=== PATIENT | female | born 1945 | race Caucasian/White ===

== ENCOUNTER 2018-10-10 06:16 | Outpatient (CLI) | payer MEDICARE ==
[2018-10-10 13:43] LABS: #Lymphocytes 1.6 thou/uL (1.20-3.40); #Monocytes 0.4 thou/uL (0.11-0.59); #Neutrophils 6.5 thou/uL (1.40-6.50); %Basophils 0.5 % (0.0-1.0); %Eosinophils 0.2 % (0.0-10.0); %Lymphocytes 18.9 % (21.0-51.0); %Monocytes 4.4 % (0.0-10.0); %Neutrophils 76.1 % (42.0-75.0); Hemoglobin 10.9 g/dL (12.0-16.0); Mean Corpuscular HGB CONC 32.6 g/dL (32.0-36.0); Mean Corpuscular Hemoglobin 29.5 pg (27.0-31.0); Mean Corpuscular Volume 90.4 fL (78.0-98.0); Mean Platelet Volume 9.2 fL (7.4-10.4); Platelet Count 325 thou/uL (130-400); RBC Distribution Width 12.2 % (11.5-14.5); Red Blood Cell (RBC) Count 3.69 mill/uL (4.20-5.40); White Blood Cell (WBC) Count 8.5 thou/uL (4.8-10.8)
[2018-10-10 13:51] LABS: Prothrombin Time 12.9 SEC (12.0-14.7)
--- NOTE | 2018-10-10 13:59 | RAD ---
CHEST PA AND LATERAL: History: 73-year-old female for pre-operative evaluation. FINDINGS: Minimal bilateral hyperinflation. Mild apical pleural thickening. Nipple shadows overlie the right an d left chest on the PA radiograph. No confluent pneumonia, overt edema, or pleural effusion. IMPRESSION: No acute intrathoracic disease. POS: C
[2018-10-10 14:14] LABS: Anion Gap 11 mmol/L (10-20); BUN (Urea Nitrogen) 23 mg/dL (9.8-20.1); Calc. Creatinine Clearance 0 mL/min (70-130); Calcium 9.6 mg/dL (7.8-10.44); Carbon Dioxide 27 mmol/L (23-31); Chloride 106 mmol/L (98-107); Estimated GFR-MDRD 58; Glucose 120 mg/dL (83-110); Potassium 3.9 mmol/L (3.5-5.1); Sodium 140 mmol/L (136-145)
== END 2018-10-10 06:17 | disposition home or self-care (01) ==
LOC: LABBT 06:16
PROVIDERS: ATTEND Orthopaedic Surgery
DX: Z01.818 Encounter for other preprocedural examination (principal); M16.11 Unilateral primary osteoarthritis, right hip
CPT/HCPCS: 71046; 80048; 85025; 85610; 87081; 93005; 93010

== ENCOUNTER 2018-10-10 14:30 | Inpatient (IN) | payer MEDICARE ==
[2018-10-10 13:32] VITALS: BMI 17.2
[2018-10-22] MEDS ORDERED: CEFAZOLIN 2 GM/50 ML BAG ONE (08:20)
[2018-10-22] MEDS ORDERED: Sodium Chloride 0.9% 100 ML ONE (08:20)
[2018-10-22] MEDS ORDERED: Tranexamic Acid 1,000 MG/10 ML VIAL ONE (08:20)
[2018-10-22] MEDS ORDERED: Promethazine HCl 25 MG/ML VIAL IM PRN ×3 (08:38→12:05)
[2018-10-22] MEDS ORDERED: Ondansetron PF 4 MG/2 ML Vial IVP PRN ×2 (08:38→10:15)
[2018-10-22] MEDS ORDERED: HYDROcodone/Acetaminophen 10/325 mg Tablet PO PRN ×2 (08:38)
[2018-10-22] MEDS ORDERED: Zolpidem Tartrate 5 MG TAB PO PRN ×2 (08:38→10:15)
[2018-10-22] MEDS ORDERED: diphenhydrAMINE 25 MG CAP PO PRN ×2 (08:38→10:15)
[2018-10-22] MEDS ORDERED: Acetaminophen 325 MG TAB PO PRN (08:38)
[2018-10-22] MEDS ORDERED: Levofloxacin 500 mg/D5W 100 ml Premix Bag ONE (09:08)
[2018-10-22] MEDS ORDERED: Midazolam HCl 2 mg/2 ml Vial ONE (09:18)
[2018-10-22] MEDS ORDERED: Fentanyl 100 MCG/2 ML VIAL ONE ×3 (09:18→12:05)
[2018-10-22] MEDS ORDERED: Bupivacaine 0.25% 10 ML VIAL EPIDURAL PRN (10:15)
[2018-10-22] MEDS ORDERED: Promethazine HCl 25 MG SUPP PR PRN (10:15)
[2018-10-22] MEDS ORDERED: traMADol HCl 50 MG TAB PO PRN (10:15)
[2018-10-22] MEDS ORDERED: Naloxone HCl 0.4 mg/ml Vial IVP PRN (10:15)
[2018-10-22] MEDS ORDERED: Hydrocerin (Eucerin) Cream 120 gm Jar TOP PRN (10:15)
[2018-10-22] MEDS ORDERED: HYDROcodone/Acetaminophen 5/325 mg Tablet PO PRN (10:15)
[2018-10-22] MEDS ORDERED: diphenhydrAMINE 50 MG/ML VIAL IM PRN (10:15)
[2018-10-22] MEDS ORDERED: Naloxone HCl 0.4 mg/ml Vial IV PRN (10:15)
[2018-10-22] MEDS ORDERED: diphenhydrAMINE 50 MG/ML VIAL IVP PRN (10:15)
[2018-10-22] MEDS ORDERED: Ropivacaine 0.2% HCl/PF 20 ML ONE (10:20)
[2018-10-22] MEDS ORDERED: Ondansetron HCl/PF 4 MG/2 ML Vial IVP PRN (12:05)
[2018-10-22] MEDS ORDERED: Promethazine HCl 25 MG/ML VIAL SLOW IVP PRN (12:05)
[2018-10-22] MEDS ORDERED: Fentanyl/Bupivacaine 100 ML EPIDURAL ONE (12:24)
[2018-10-22] MEDS ORDERED: Ondansetron PF 4 MG/2 ML Vial ONE (12:55)
[2018-10-22] MEDS ORDERED: Dexamethasone 20 MG/5 ML VIAL ONE (12:55)
[2018-10-22] MEDS ORDERED: ePHEDrine/0.9% NaCl/PF SYRINGE 50 mg/10 ml ONE (12:55)
[2018-10-22] MEDS ORDERED: PHENYLEPHRINE-NS 100 MCG/ML 10 ML SYRINGE ONE (12:55)
[2018-10-22] MEDS ORDERED: PROPOFOL 200 MG/20 ML VIAL ONE (12:55)
--- NOTE | 2018-10-22 13:19 | OP ---
DATE OF PROCEDURE: 10/22/2018 PREOPERATIVE DIAGNOSIS: Degenerative joint disease, right hip. POSTOPERATIVE DIAGNOSIS: Degenerative joint disease, right hip. IMPLANTS USED: [place] Accolade 3.5 stem with a -2.5, 36 ceramic head and a 50 mm PSL cup with X3 liner. PULMONARY FUNCTION TECHNOLOGIST: Jose Alfredo Kan PA-C. BLOOD LOSS: 200. SPECIMEN: None. DRAINS: None. COMPLICATION: None. PROCEDURE IN DETAIL: After informed consent was obtained in the preoperative holding area, the patient was taken to the operative suite where general anesthesia was induced. The patient was then positioned in the lateral decubitus position. The hip was then prepped and draped in usual sterile fashion. The patient received preoperative antibiotics. Prior to incision, time-out was called and all members of the surgical team agreed upon site, surgeon, and patient. After this, a longitudinal incision was made directly over the trochanter, noted by palpation extending 2 fingerbreadths above and below the trochanter. The deeper subcutaneous layer was undermined with Bovie electrocautery. The iliotibial band was encountered and incised sharply and the plane below this was developed bluntly. A Charnley retractor was placed to hold this opened. The lateral aspect of the trochanter and the abductor muscles were encountered and then reflected anteriorly off the trochanter using Bovie electrocautery. Once this was completed, the anterior capsule was then encountered and identified and copious capsulotomy was carried out, exposing the femoral neck and head. Dislocation maneuver was then performed and an in situ provisional neck cut was then made using the oscillating saw. Attention was then turned to acetabular preparation and sequential reaming was carried out up to the appropriate diameter. A trial was then malleted into place with good firm resistance and no pullout. The permanent acetabular shell was then malleted squarely into place, as was the appropriate liner. Once completed, the wound was copiously irrigated and attention was then turned to femoral preparation. Flexion and external rotation were performed of the exposed thigh and femoral elevators were then placed at the proximal aspect of the wound. Canal finder was used to establish the length of the canal and sequential reaming was carried out, followed by broaching. Once the appropriate stability was established with the trial broaches with flexion, extension and rotational stability, we did trial with neutral and 2 mm offset incremental necks. Once the appropriate size was decided upon, with good stability noted with flexion, extension, internal and external rotation and shuck being negative, we removed the femoral trial broach and malletted into place the permanent prosthesis with good firm fit, which was also stable to rotation. Again, the hip felt very stable to flexion, extension, internal and external rotation. Leg lengths appeared near anatomic clinically and we were quite happy with prosthesis placement. Copious irrigation was then carried out through the entirety of the wound. Primary closure of the abductors was accomplished with interrupted #2 Vicryl [id number] stitches and the IT band was then closed with interrupted #2 Vicryl, oversewn with a #2 running barbed Quill stitch. Subcutaneous fascia was closed with running barbed Quill stitch and a subcuticular Monocryl barbed Quill stitch was used for skin closure and augmented with skin cement. A sterile dressing was applied. The procedure was terminated without any complication. All counts were correct. The patient was awakened in the operative suite and taken to the recovery room in stable condition. Job ID: [id number]
[2018-10-22] MEDS: Aspirin 81 mg Enteric Coated Tablet PO SCH ×2 (13:53→19:42)
--- NOTE | 2018-10-22 13:53 | RAD ---
2 VIEWS RIGHT HIP: Date: 10/22/18 HISTORY: Total hip arthroplasty. FINDINGS: There is a right total hip arthroplasty with no evidence for hardware failure. There is adjacent post operative gas suggesting recent procedure. IMPRESSION: Status post right hip arthroplasty. No adverse features. POS: JOSE DAVID
[2018-10-22] MEDS: Ketorolac Tromethamine 30 MG/ML VIAL IVP SCH ×3 (13:54→23:19)
[2018-10-22] MEDS ORDERED: Ketorolac Tromethamine 30 MG/ML VIAL IVP SCH (14:00)
[2018-10-22] MEDS ORDERED: Loperamide HCl 2 MG CAP PO PRN (15:05)
[2018-10-22] MEDS ORDERED: Cepastat Lozenges 1 LOZ PO PRN (15:05)
[2018-10-22] MEDS ORDERED: hydrALAZINE 20 MG/ML VIAL SLOW IVP PRN (15:05)
[2018-10-22] MEDS ORDERED: Artificial Tear Sol 15 ML BOT EA EYE PRN (15:05)
[2018-10-22] MEDS ORDERED: Diabetic Tussin 200 MG/10 ML UDCUP PO PRN (15:05)
[2018-10-22] MEDS ORDERED: Eucerin (Mineral Oil/Petrolatum,White) 30 gm Jar TOP PRN (15:05)
[2018-10-22] MEDS: Sodium Chloride 0.9% 1,000 ML IV SCH ×2 (15:19→15:28)
--- NOTE | 2018-10-22 15:34 | PDOC.PN ---
- Subjective Encounter Start Date: 10/22/18 Encounter Start Time: 15:00 -: old records requested/rev Patient seen and examined. No new complaints. pt is admitted for right hip replacement pain controlled BP low but pt is asymptomatic - Objective Resuscitation Status - Order Detail: 10/22/18 14:57 Resuscitation Status Routine Resuscitation Status: FULL: Full Resuscitation MAR Reviewed: Yes Vital Signs & Weight: Vital Signs (12 hours) Temp Pulse Resp BP Pulse Ox 10/22/18 14:20 97.8 F 60 18 95/52 L 100 Weight Weight 100 lb Additional Labs: old medical record reviewed Radiology Reviewed by me: Yes (hip xray reviewed) Phys Exam - Physical Examination Constitutional: NAD HEENT: PERRLA, moist MMs, sclera anicteric, oral pharynx no lesions Neck: no JVD, supple Respiratory: no wheezing, no rales, no rhonchi Cardiovascular: RRR, no significant murmur, no rub Gastrointestinal: soft, non-tender, no distention, positive bowel sounds Musculoskeletal: no edema, pulses present right hip surgical site dressing, almodovar+, epidural in place Neurological: non-focal, normal sensation, moves all 4 limbs Lymphatic: no nodes Psychiatric: normal affect, A&O x 3 Skin: no rash, normal turgor Dx/Plan (1) Osteoarthritis Code(s): M19.90 - UNSPECIFIED OSTEOARTHRITIS, UNSPECIFIED SITE Status: Chronic (2) Status post total hip replacement, right Code(s): Z96.641 - PRESENCE OF RIGHT ARTIFICIAL HIP JOINT Status: Acute - Plan cont current plan of care, plan discussed w/ family, PT/OT * continue aspirin for DVT prophylaxis * epidural as per anesthesia * PT/OT as per [facility] protocol treatment * home medication reconciled * medication reviewed as below * symptomatic treatment * code status addressed and she is full code * pain controlled * medically stable * discussed with family bedside * will follow.. Review of Systems - Review of Systems ENT: negative: Ear Pain, Ear Discharge, Nose Pain, Nose Discharge, Nose Congestion, Mouth Pain, Mouth Swelling, Throat Pain, Throat Swelling, Other Respiratory: negative: Cough, Dry, Shortness of Breath, Hemoptysis, SOB with Excertion, Pleuritic Pain, Sputum, Wheezing Cardiovascular: negative: chest pain, palpitations, orthopnea, paroxysmal nocturnal dyspnea, edema, light headedness, other Gastrointestinal: negative: Nausea, Vomiting, Abdominal Pain, Diarrhea, Constipation, Melena, Hematochezia, Other Genitourinary: negative: Dysuria, Frequency, Incontinence, Hematuria, Retention , Other Musculoskeletal: negative: Neck Pain, Shoulder Pain, Arm Pain, Back Pain, Hand Pain, Leg Pain, Foot Pain, Other Skin: negative: Rash, Lesions, Harinder, Bruising, Other - Medications/Allergies Allergies/Adverse Reactions: Allergies Allergy/AdvReac Type Severity Reaction Status Date / Time Penicillins Allergy Verified 10/22/18 14:14 Medications: Current Medications Acetaminophen (Tylenol) 650 mg PO Q4H PRN PRN Reason: Headache/Fever or Pain Hydrocodone Bitart/Acetaminophen ([place] 5/325) 1 tab PO Q4H PRN PRN Reason: Mild Pain 0-3 Hydrocodone Bitart/Acetaminophen ([place] 5/325) 2 tab PO Q4H PRN PRN Reason: For Moderate Pain 4-6 Artificial Tears (Tears Renewed 15ml Bottle) 2 drop EA EYE PRN PRN PRN Reason: Dry Eyes Aspirin (Ecotrin) 81 mg PO BID [facility] Last Admin: 10/22/18 13:53 Dose: Not Given Bupivacaine HCl (Marcaine) 5 ml EPIDURAL ONE PRN PRN Reason: UNCONTROLLED PAIN Stop: 10/22/18 23:00 Diphenhydramine HCl (Benadryl) 25 mg PO Q3H PRN PRN Reason: Itching Diphenhydramine HCl (Benadryl) 25 mg IM Q3H PRN PRN Reason: Itching Diphenhydramine HCl (Benadryl) 25 mg IVP Q3H PRN PRN Reason: Itching Emollient Cream (Hydrocerin Cream) 0 gm TOP PRN PRN PRN Reason: Itching Famotidine (Pepcid) 20 mg PO BID [facility] Ferrous Gluconate (Fergon) 324 [facility] BID[facility] Guaifenesin (Robitussin Sf) 200 mg PO Q4H PRN PRN Reason: Cough Hydralazine HCl (Apresoline) 10 mg SLOW IVP Q4H PRN PRN Reason: SBP > 180 and HR < 70 Levofloxacin 500 mg/ Device 100 mls @ 100 mls/hr IVPB 0900 [facility] Stop: 10/23/18 09:59 Sodium Chloride (Normal Saline 0.9%) 1,000 mls @ 100 mls/hr IV .Q10H [facility] Last Admin: 10/22/18 15:28 Dose: Not Given Vancomycin HCl 1 gm/ Device 200 mls @ 200 mls/hr IVPB 1999 [facility] Stop: 10/22/18 20:59 Fentanyl Citrate (Fentanyl/Bupivacaine) 100 mls @ 6 mls/hr EPIDURAL INF [facility] Iron/Minerals/Multivitamins (Theragran M) 1 tab PO DAILY [facility] Ketorolac Tromethamine (Toradol) 15 mg IVP Q6HR [facility] Stop: 10/24/18 06:01 Last Admin: 10/22/18 13:54 Dose: Not Given Loperamide HCl (Imodium) 2 mg PO PRN PRN PRN Reason: Diarrhea/Loose Stools Mineral Oil/White Petrolatum (Eucerin Cream) 0 gm TOP BIDPRN PRN PRN Reason: Dry Skin Miscellaneous Information (Communication Order-Pharmacy) 1 each FS ASDIR [facility] Naloxone HCl (Narcan) 0.2 mg IV Q5MIN PRN PRN Reason: RR <=8 OR OBTUNDED/UNAROUSABLE Naloxone HCl (Narcan) 0.1 mg IVP Q15MIN PRN PRN Reason: URINARY RETENTION Ondansetron HCl (Zofran) 4 mg IVP Q6H PRN PRN Reason: Nausea/Vomiting Promethazine HCl (Phenergan) 12.5 mg IM Q4H PRN PRN Reason: Nausea Promethazine HCl (Phenergan Suppository) 25 mg [place] Q4H PRN PRN Reason: Nausea/Vomiting Senna/Docusate Sodium (Senokot S) 2 tab PO BID [facility] Sodium Chloride (Flush - Normal Saline) 10 ml IVF PRN PRN PRN Reason: Saline Flush Throat Lozenges (Cepastat Lozenges) 1 chaz PO Q2H PRN PRN Reason: Sore Throat Tramadol HCl (Ultram) 50 mg PO Q6H PRN PRN Reason: Mild Pain 1-3 Tramadol HCl (Ultram) 100 mg PO Q6H PRN PRN Reason: Moderate Pain 4-6 Zolpidem Tartrate (Ambien) 5 mg PO HSPRN PRN PRN Reason: Insomnia
[2018-10-22] MEDS: Famotidine 20 MG TAB PO SCH (19:42)
[2018-10-22] MEDS ORDERED: Vancomycin HCl 1 GM in Premix Bag 1 BAG IVPB SCH (20:00)
[2018-10-23] MEDS: Sodium Chloride 0.9% 1,000 ML IV SCH ×2 (04:53→14:53)
[2018-10-23] MEDS: Ketorolac Tromethamine 30 MG/ML VIAL IVP SCH ×3 (05:39→17:30)
[2018-10-23] MEDS: Fentanyl/Bupivacaine 100 ML EPIDURAL SCH ×2 (05:43→21:13)
[2018-10-23 07:37] LABS: Hemoglobin 8.5 g/dL (12.0-16.0); Mean Corpuscular HGB CONC 32.6 g/dL (32.0-36.0); Mean Corpuscular Hemoglobin 29.7 pg (27.0-31.0); Mean Platelet Volume 9.4 fL (7.4-10.4); Platelet Count 252 thou/uL (130-400); RBC Distribution Width 12.2 % (11.5-14.5); Red Blood Cell (RBC) Count 2.87 mill/uL (4.20-5.40); White Blood Cell (WBC) Count 11.9 thou/uL (4.8-10.8)
[2018-10-23] MEDS: Multivitamin W/ Minerals 1 TAB PO SCH (07:52)
[2018-10-23] MEDS: Famotidine 20 MG TAB PO SCH ×2 (07:52→20:24)
[2018-10-23] MEDS: Aspirin 81 mg Enteric Coated Tablet PO SCH ×2 (07:52→20:24)
[2018-10-23] MEDS: Ferrous Gluconate 324 MG TAB PO SCH ×2 (07:52→17:40)
[2018-10-23] MEDS: Senokot S 8.6-50 MG TAB PO SCH ×2 (07:52→20:24)
[2018-10-23] MEDS: traMADol HCl 50 MG TAB PO PRN (10:12)
--- NOTE | 2018-10-23 10:49 | PDOC.PN ---
- Subjective Encounter Start Date: 10/23/18 Encounter Start Time: 08:10 Patient seen and examined. No new complaints. No overnight events - Objective Resuscitation Status - Order Detail: 10/22/18 14:57 Resuscitation Status Routine Resuscitation Status: FULL: Full Resuscitation MAR Reviewed: Yes Vital Signs & Weight: Vital Signs (12 hours) Temp Pulse Resp BP BP Pulse Ox 10/23/18 10:15 106/48 L 10/23/18 08:20 97.8 F 80 20 93/47 L 100 10/23/18 08:00 100 10/23/18 04:30 98 F 78 20 98/51 L 99 10/23/18 00:11 97.9 F 82 19 119/54 L 100 Weight Weight 100 lb I&O: 10/22/18 10/23/18 10/24/18 06:59 06:59 06:59 Intake Total 2120 Output Total 900 Balance 1220 Result Diagrams: 10/23/18 07:20 Phys Exam - Physical Examination Constitutional: NAD HEENT: PERRLA, moist MMs, sclera anicteric Neck: no JVD, supple Respiratory: no wheezing, no rales, no rhonchi Cardiovascular: RRR, no significant murmur, no rub Gastrointestinal: soft, non-tender, no distention, positive bowel sounds Musculoskeletal: no edema, pulses present almodovar+, epidural in place,, surgical site with dressing Neurological: non-focal, normal sensation, moves all 4 limbs Psychiatric: normal affect, A&O x 3 Skin: no rash, normal turgor Dx/Plan (1) Status post total hip replacement, right Code(s): Z96.641 - PRESENCE OF RIGHT ARTIFICIAL HIP JOINT Status: Acute (2) Anemia, normocytic normochromic Code(s): D64.9 - ANEMIA, UNSPECIFIED Status: Chronic (3) Osteoarthritis Code(s): M19.90 - UNSPECIFIED OSTEOARTHRITIS, UNSPECIFIED SITE Status: Chronic - Plan cont current plan of care, PT/OT * BP low but pt is asymptomatic * continue aspirin for DVT prophylaxis * epidural as per anesthesia * PT/OT as per [facility] protocol treatment * medication reviewed as below * symptomatic treatment * pain controlled * medically stable. Review of Systems - Review of Systems Eyes: negative: Pain, Vision Change, Conjunctivae Inflammation, Eyelid Inflammation, Redness, Other ENT: negative: Ear Pain, Ear Discharge, Nose Pain, Nose Discharge, Nose Congestion, Mouth Pain, Mouth Swelling, Throat Pain, Throat Swelling, Other Respiratory: negative: Cough, Dry, Shortness of Breath, Hemoptysis, SOB with Excertion, Pleuritic Pain, Sputum, Wheezing Cardiovascular: negative: chest pain, palpitations, orthopnea, paroxysmal nocturnal dyspnea, edema, light headedness, other Gastrointestinal: negative: Nausea, Vomiting, Abdominal Pain, Diarrhea, Constipation, Melena, Hematochezia, Other Genitourinary: negative: Dysuria, Frequency, Incontinence, Hematuria, Retention , Other Musculoskeletal: negative: Neck Pain, Shoulder Pain, Arm Pain, Back Pain, Hand Pain, Leg Pain, Foot Pain, Other Skin: negative: Rash, Lesions, Harinder, Bruising, Other - Medications/Allergies Allergies/Adverse Reactions: Allergies Allergy/AdvReac Type Severity Reaction Status Date / Time Penicillins Allergy Verified 10/22/18 14:14 Medications: Current Medications Acetaminophen (Tylenol) 650 mg PO Q4H PRN PRN Reason: Headache/Fever or Pain Hydrocodone Bitart/Acetaminophen ([place] 5/325) 1 tab PO Q4H PRN PRN Reason: Mild Pain 0-3 Hydrocodone Bitart/Acetaminophen ([place] 5/325) 2 tab PO Q4H PRN PRN Reason: For Moderate Pain 4-6 Artificial Tears (Tears Renewed 15ml Bottle) 2 drop EA EYE PRN PRN PRN Reason: Dry Eyes Aspirin (Ecotrin) 81 mg PO BID [facility] Last Admin: 10/23/18 07:52 Dose: 81 mg Diphenhydramine HCl (Benadryl) 25 mg PO Q3H PRN PRN Reason: Itching Diphenhydramine HCl (Benadryl) 25 mg IM Q3H PRN PRN Reason: Itching Diphenhydramine HCl (Benadryl) 25 mg IVP Q3H PRN PRN Reason: Itching Emollient Cream (Hydrocerin Cream) 0 gm TOP PRN PRN PRN Reason: Itching Famotidine (Pepcid) 20 mg PO BID [facility] Last Admin: 10/23/18 07:52 Dose: 20 mg Ferrous Gluconate (Fergon) 324 mg PO BID[facility] Last Admin: 10/23/18 07:52 Dose: 324 mg Guaifenesin (Robitussin Sf) 200 mg PO Q4H PRN PRN Reason: Cough Hydralazine HCl (Apresoline) 10 mg SLOW IVP Q4H PRN PRN Reason: SBP > 180 and HR < 70 Sodium Chloride (Normal Saline 0.9%) 1,000 mls @ 100 mls/hr IV .Q10H [facility] Last Admin: 10/23/18 04:53 Dose: Not Given Fentanyl Citrate (Fentanyl/Bupivacaine) 100 mls @ 6 mls/hr EPIDURAL INF [facility] Last Admin: 10/23/18 05:43 Dose: 100 mls Iron/Minerals/Multivitamins (Theragran M) 1 tab PO DAILY [facility] Last Admin: 10/23/18 07:52 Dose: 1 tab Ketorolac Tromethamine (Toradol) 15 mg IVP Q6HR [facility] Stop: 10/24/18 06:01 Last Admin: 10/23/18 05:39 Dose: 15 mg Loperamide HCl (Imodium) 2 mg PO PRN PRN PRN Reason: Diarrhea/Loose Stools Mineral Oil/White Petrolatum (Eucerin Cream) 0 gm TOP BIDPRN PRN PRN Reason: Dry Skin Miscellaneous Information (Communication Order-Pharmacy) 1 each FS ASDIR [facility] Naloxone HCl (Narcan) 0.2 mg IV Q5MIN PRN PRN Reason: RR <=8 OR OBTUNDED/UNAROUSABLE Naloxone HCl (Narcan) 0.1 mg IVP Q15MIN PRN PRN Reason: URINARY RETENTION Ondansetron HCl (Zofran) 4 mg IVP Q6H PRN PRN Reason: Nausea/Vomiting Promethazine HCl (Phenergan) 12.5 mg IM Q4H PRN PRN Reason: Nausea Promethazine HCl (Phenergan Suppository) 25 mg [place] Q4H PRN PRN Reason: Nausea/Vomiting Senna/Docusate Sodium (Senokot S) 2 tab PO BID [facility] Last Admin: 10/23/18 07:52 Dose: 2 tab Sodium Chloride (Flush - Normal Saline) 10 ml IVF PRN PRN PRN Reason: Saline Flush Throat Lozenges (Cepastat Lozenges) 1 chaz PO Q2H PRN PRN Reason: Sore Throat Tramadol HCl (Ultram) 50 mg PO Q6H PRN PRN Reason: Mild Pain 1-3 Last Admin: 10/23/18 10:12 Dose: 50 mg Tramadol HCl (Ultram) 100 mg PO Q6H PRN PRN Reason: Moderate Pain 4-6 Zolpidem Tartrate (Ambien) 5 mg PO HSPRN PRN PRN Reason: Insomnia
[2018-10-24] MEDS: Sodium Chloride 0.9% 1,000 ML IV SCH ×3 (00:25→19:19)
[2018-10-24] MEDS: Ketorolac Tromethamine 30 MG/ML VIAL IVP SCH ×2 (00:25→06:22)
[2018-10-24 06:41] LABS: Hemoglobin 8.3 g/dL (12.0-16.0); Mean Corpuscular HGB CONC 31.7 g/dL (32.0-36.0); Mean Corpuscular Hemoglobin 29.3 pg (27.0-31.0); Mean Corpuscular Volume 92.6 fL (78.0-98.0); Mean Platelet Volume 10.2 fL (7.4-10.4); Platelet Count 253 thou/uL (130-400); RBC Distribution Width 12.6 % (11.5-14.5); Red Blood Cell (RBC) Count 2.82 mill/uL (4.20-5.40); White Blood Cell (WBC) Count 11.3 thou/uL (4.8-10.8)
[2018-10-24] MEDS: Multivitamin W/ Minerals 1 TAB PO SCH (08:21)
[2018-10-24] MEDS: Ferrous Gluconate 324 MG TAB PO SCH ×2 (08:21→16:50)
[2018-10-24] MEDS: Senokot S 8.6-50 MG TAB PO SCH ×2 (08:21→20:31)
[2018-10-24] MEDS: Famotidine 20 MG TAB PO SCH ×2 (08:22→20:31)
[2018-10-24] MEDS: Aspirin 81 mg Enteric Coated Tablet PO SCH ×2 (08:25→20:30)
--- NOTE | 2018-10-24 09:43 | PDOC.PN ---
- Subjective Encounter Start Date: 10/24/18 Encounter Start Time: 08:00 Patient seen and examined. No new complaints. No overnight events - Objective Resuscitation Status - Order Detail: 10/22/18 14:57 Resuscitation Status Routine Resuscitation Status: FULL: Full Resuscitation MAR Reviewed: Yes Vital Signs & Weight: Vital Signs (12 hours) Temp Pulse Resp BP Pulse Ox 10/24/18 07:15 98.4 F 79 18 94/52 L 96 10/24/18 04:00 98.1 F 79 15 96/61 98 10/24/18 01:03 98.6 F 83 17 112/56 L 99 Weight Admit Weight 100 lb Weight 100 lb I&O: 10/23/18 10/24/18 10/25/18 06:59 06:59 06:59 Intake Total 2120 750 Output Total 900 1250 Balance 1220 -500 Result Diagrams: 10/24/18 04:26 Phys Exam - Physical Examination Constitutional: NAD HEENT: PERRLA, moist MMs, sclera anicteric Neck: no JVD, supple Respiratory: no wheezing, no rales, no rhonchi Cardiovascular: RRR, no significant murmur, no rub Gastrointestinal: soft, non-tender, no distention, positive bowel sounds Musculoskeletal: no edema, pulses present Neurological: non-focal, normal sensation Lymphatic: no nodes Psychiatric: normal affect, A&O x 3 Skin: no rash, normal turgor Dx/Plan (1) Status post total hip replacement, right Code(s): Z96.641 - PRESENCE OF RIGHT ARTIFICIAL HIP JOINT Status: Acute (2) Anemia, normocytic normochromic Code(s): D64.9 - ANEMIA, UNSPECIFIED Status: Chronic (3) Osteoarthritis Code(s): M19.90 - UNSPECIFIED OSTEOARTHRITIS, UNSPECIFIED SITE Status: Chronic - Plan cont current plan of care, PT/OT, rn social services * medication reviewed as below * symptomatic treatment * may need placement * medically stable. Review of Systems - Review of Systems ENT: negative: Ear Pain, Ear Discharge, Nose Pain, Nose Discharge, Nose Congestion, Mouth Pain, Mouth Swelling, Throat Pain, Throat Swelling, Other Respiratory: negative: Cough, Dry, Shortness of Breath, Hemoptysis, SOB with Excertion, Pleuritic Pain, Sputum, Wheezing Cardiovascular: negative: chest pain, palpitations, orthopnea, paroxysmal nocturnal dyspnea, edema, light headedness, other Gastrointestinal: negative: Nausea, Vomiting, Abdominal Pain, Diarrhea, Constipation, Melena, Hematochezia, Other Genitourinary: negative: Dysuria, Frequency, Incontinence, Hematuria, Retention , Other Musculoskeletal: negative: Neck Pain, Shoulder Pain, Arm Pain, Back Pain, Hand Pain, Leg Pain, Foot Pain, Other - Medications/Allergies Allergies/Adverse Reactions: Allergies Allergy/AdvReac Type Severity Reaction Status Date / Time Penicillins Allergy Verified 10/22/18 14:14 Medications: Current Medications Acetaminophen (Tylenol) 650 mg PO Q4H PRN PRN Reason: Headache/Fever or Pain Hydrocodone Bitart/Acetaminophen ([place] 5/325) 1 tab PO Q4H PRN PRN Reason: Mild Pain 0-3 Hydrocodone Bitart/Acetaminophen ([place] 5/325) 2 tab PO Q4H PRN PRN Reason: For Moderate Pain 4-6 Artificial Tears (Tears Renewed 15ml Bottle) 2 drop EA EYE PRN PRN PRN Reason: Dry Eyes Aspirin (Ecotrin) 81 mg PO BID [facility] Last Admin: 10/24/18 08:25 Dose: 81 mg Diphenhydramine HCl (Benadryl) 25 mg PO Q3H PRN PRN Reason: Itching Diphenhydramine HCl (Benadryl) 25 mg IM Q3H PRN PRN Reason: Itching Diphenhydramine HCl (Benadryl) 25 mg IVP Q3H PRN PRN Reason: Itching Emollient Cream (Hydrocerin Cream) 0 gm TOP PRN PRN PRN Reason: Itching Famotidine (Pepcid) 20 mg PO BID [facility] Last Admin: 10/24/18 08:22 Dose: 20 mg Ferrous Gluconate (Fergon) 324 mg PO BID[facility] Last Admin: 10/24/18 08:21 Dose: 324 mg Guaifenesin (Robitussin Sf) 200 mg PO Q4H PRN PRN Reason: Cough Hydralazine HCl (Apresoline) 10 mg SLOW IVP Q4H PRN PRN Reason: SBP > 180 and HR < 70 Sodium Chloride (Normal Saline 0.9%) 1,000 mls @ 100 mls/hr IV .Q10H [facility] Last Admin: 10/24/18 00:25 Dose: Not Given Fentanyl Citrate (Fentanyl/Bupivacaine) 100 mls @ 6 mls/hr EPIDURAL INF [facility] Last Admin: 10/23/18 21:13 Dose: 100 mls Iron/Minerals/Multivitamins (Theragran M) 1 tab PO DAILY [facility] Last Admin: 10/24/18 08:21 Dose: 1 tab Loperamide HCl (Imodium) 2 mg PO PRN PRN PRN Reason: Diarrhea/Loose Stools Mineral Oil/White Petrolatum (Eucerin Cream) 0 gm TOP BIDPRN PRN PRN Reason: Dry Skin Miscellaneous Information (Communication Order-Pharmacy) 1 each FS ASDIR [facility] Naloxone HCl (Narcan) 0.2 mg IV Q5MIN PRN PRN Reason: RR <=8 OR OBTUNDED/UNAROUSABLE Naloxone HCl (Narcan) 0.1 mg IVP Q15MIN PRN PRN Reason: URINARY RETENTION Ondansetron HCl (Zofran) 4 mg IVP Q6H PRN PRN Reason: Nausea/Vomiting Last Admin: 10/23/18 17:30 Dose: 4 mg Promethazine HCl (Phenergan) 12.5 mg IM Q4H PRN PRN Reason: Nausea Promethazine HCl (Phenergan Suppository) 25 mg [place] Q4H PRN PRN Reason: Nausea/Vomiting Senna/Docusate Sodium (Senokot S) 2 tab PO BID [facility] Last Admin: 10/24/18 08:21 Dose: 2 tab Sodium Chloride (Flush - Normal Saline) 10 ml IVF PRN PRN PRN Reason: Saline Flush Throat Lozenges (Cepastat Lozenges) 1 chaz PO Q2H PRN PRN Reason: Sore Throat Tramadol HCl (Ultram) 50 mg PO Q6H PRN PRN Reason: Mild Pain 1-3 Last Admin: 10/23/18 10:12 Dose: 50 mg Tramadol HCl (Ultram) 100 mg PO Q6H PRN PRN Reason: Moderate Pain 4-6 Zolpidem Tartrate (Ambien) 5 mg PO HSPRN PRN PRN Reason: Insomnia
[2018-10-24] MEDS: traMADol HCl 50 MG TAB PO PRN (15:26)
[2018-10-24] MEDS: HYDROcodone/Acetaminophen 5/325 mg Tablet PO PRN (18:53)
[2018-10-25 06:31] LABS: Hemoglobin 8.7 g/dL (12.0-16.0); Mean Corpuscular HGB CONC 32.7 g/dL (32.0-36.0); Mean Corpuscular Hemoglobin 29.7 pg (27.0-31.0); Mean Corpuscular Volume 90.7 fL (78.0-98.0); Mean Platelet Volume 9.7 fL (7.4-10.4); Platelet Count 251 thou/uL (130-400); RBC Distribution Width 12.2 % (11.5-14.5); Red Blood Cell (RBC) Count 2.93 mill/uL (4.20-5.40); White Blood Cell (WBC) Count 11.2 thou/uL (4.8-10.8)
[2018-10-25] MEDS: Sodium Chloride 0.9% 1,000 ML IV SCH ×2 (06:38→08:30)
[2018-10-25] MEDS: Ferrous Gluconate 324 MG TAB PO SCH (08:28)
[2018-10-25] MEDS: Senokot S 8.6-50 MG TAB PO SCH (08:29)
[2018-10-25] MEDS: Aspirin 81 mg Enteric Coated Tablet PO SCH (08:29)
[2018-10-25] MEDS: HYDROcodone/Acetaminophen 5/325 mg Tablet PO PRN (08:29)
[2018-10-25] MEDS: Famotidine 20 MG TAB PO SCH (08:29)
[2018-10-25] MEDS: Multivitamin W/ Minerals 1 TAB PO SCH (08:29)
--- NOTE | 2018-10-25 10:44 | PRG ---
DATE OF SERVICE: 10/25/2018 PROGRESS NOTE/SIGN OUT NOTE/TRANSFER OF CARE NOTE OR DISCHARGE SUMMARY: PRIMARY CARE PHYSICIAN: Juanjose Gaitan MD DATE OF DISCHARGE: 10/25/2018. DISCHARGE DISPOSITION: Group Home Unit. PRIMARY DISCHARGE DIAGNOSIS: Status post total hip replacement on the right side. SECONDARY DISCHARGE DIAGNOSES: 1. Normocytic normochromic anemia. 2. Osteoarthritis. PRIMARY PROCEDURE/OPERATION: Right total hip replacement by Dr. Rothman. RADIOLOGICAL INVESTIGATION: Hip x-ray. SIGNIFICANT LABORATORY DATA: WBC 11.2, hemoglobin 8.7, platelet 251. DISCHARGE MEDICATIONS: 1. Aspirin 81 mg p.o. b.i.d. 2. [place] 5 one or two tablets q.4 hourly p.r.n. CONTRAINDICATION: None. CODE STATUS: Full code. INPATIENT COLLABORATING SUPERVISING PHYSICIAN: Dr. Rothman was primary while in the hospital. [facility] Team was consulted for medical comanagement. TEST RESULTS PENDING ON DISCHARGE: None. ALLERGIES: PENICILLIN. DISCHARGE PLAN: Posthospital, the patient will follow up with Dr. Juanjose Gaitan in 1 week. Posthospital, the patient will follow up with Dr. Barrera Rothman on 11/14/2018 at 03:00 p.m. HOSPITAL COURSE: A 73-year-old female who was admitted by Dr. Rothman for right total hip replacement. The patient has osteoarthritis, which is gradually getting worse, affecting her quality of life and that is why the patient was admitted for a hip replacement, which was done on 10/22/[address] Rothman without any complication. Postoperatively, the patient was at [facility] and [facility] Team was consulted for medical comanagement. The patient's medical problems remained stable. The patient had an epidural while in hospital. She had relatively low blood pressure, but the patient was asymptomatic and it was improved with IV fluid. The patient is requiring [facility] home placement and that is why with help of director of casework, we arranged medicines with swing bed. I have seen and examined this patient at bedside. Plan of care discussed with the patient in detail. REVIEW OF SYSTEMS: All review of systems reviewed with the patient and negative. PHYSICAL EXAMINATION: VITAL SIGNS: Today vital signs, temperature 98.1, pulse 81, respiratory rate 16, saturation 99%, blood pressure 115/51, and weight 100 pounds. GENERAL: The patient is currently alert and awake, no obvious acute distress. HEENT: Head normocephalic and atraumatic. Eyes: Pupils round, reactive to light. Extraocular muscle intact. ENT: Oropharynx within normal limits. Moist mucous membranes. No oral lesion. No pharyngeal erythema. No exudate. NECK: Supple. No JVD. No thyromegaly. No carotid bruit. LUNGS: Clear to auscultation without any rhonchi or rales. CARDIAC: S1 and S2 regular without any murmur. ABDOMEN: Soft and benign. EXTREMITIES: No edema. NEUROLOGIC: Nonfocal examination. Surgical site clean and healthy. The patient is medically stable for discharge. Primary team cleared for discharge and we will sign off. Job ID: [id number]
[2018-10-25 11:35] VITALS: BP 136/68; TEMP 98.4
== END 2018-10-25 12:22 | DRG 470 ==
LOC: SURG A 10-22 07:56 → SJJU 10-22 13:14
PROVIDERS: ADMIT Orthopaedic Surgery; ATTEND Orthopaedic Surgery
PROC: 0SR903Z Replacement of Right Hip Joint with Ceramic Synthetic Substitute, Open Approach (ICD-10-PCS; principal; 2018-10-22)
DX: M16.11 Unilateral primary osteoarthritis, right hip (principal); D64.9 Anemia, unspecified; Z88.0 Allergy status to penicillin
CPT/HCPCS: 36415; 85027; J1100; J1200; J1885; J1956; J2250; J2405; J2704; J2795; J3010; J3370; J7050

== ENCOUNTER 2018-10-18 11:14 | Outpatient (CLI) | payer MEDICARE | END 2018-10-18 11:15 | disposition home or self-care (01) | LOC: LABBT 11:14 | PROVIDERS: ATTEND Orthopaedic Surgery | DX: Z01.812 Encounter for preprocedural laboratory examination (principal); M16.11 Unilateral primary osteoarthritis, right hip; M87.051 Idiopathic aseptic necrosis of right femur | CPT/HCPCS: 86850; 86900; 86901 ==

== ENCOUNTER 2018-12-26 12:37 | Outpatient (CLI) | payer MEDICARE ==
--- NOTE | 2018-12-26 14:11 | ULT ---
CAROTID ULTRASOUND WITH LEGER SCALE AND DOPPLER DUPLEX COLOR FLOW IMAGING SPECTRAL ANALYSIS PERFORMED: DATE: 12/26/18 CLINICAL INDICATION: Carotid bruit. FINDINGS: There is scattered mild to moderate atherosclerotic calcification of the carotid arteries. PEAK SYSTOLIC VELOCITY (CM/S): Right CCA 90 Left CCA 107 Right ICA 144 Left ICA 109 There is antegrade flow within the visualized bilateral vertebral arteries. IMPRESSION: 1. Moderate (50-69%) stenosis of the right internal carotid artery. 2. No hemodynamically significant stenosis of the left internal carotid artery. POS: CATHIE
== END 2018-12-26 12:38 | disposition home or self-care (01) ==
LOC: BICULT 12:37
PROVIDERS: ATTEND Family Medicine
DX: R09.89 Other specified symptoms and signs involving the circulatory and respiratory systems (principal); I65.21 Occlusion and stenosis of right carotid artery
CPT/HCPCS: 93880